=== PATIENT | male | born 1985 | race Caucasian/White ===

== ENCOUNTER 2017-10-28 23:48 | Emergency (ER) | payer BC ==
[2017-10-29 00:13] VITALS: BMI 26.4
[2017-10-29 00:16] VITALS: BP 132/76; PULSE 90; RESP 16; TEMP 98.4; O2SAT 99
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
--- NOTE | 2017-10-29 02:51 | RAD ---
EXAM: XR Left Wrist Complete, 3 or More Views CLINICAL HISTORY: 32 years old, male; Pain; Wrist; Left; Additional info: Foosh, lateral wrist tenderness TECHNIQUE: Frontal, lateral and oblique views of the left wrist. COMPARISON: CR - HAND LEFT 3 VIEWS ROUTINE 2017-10-29 01:24 FINDINGS: Bones/joints: 2 mm calcification in the dorsal aspect of the wrist raising suspicion for triquetral fracture. No dislocation. Soft tissues: Soft tissue swelling in the dorsal aspect of the wrist. No radiopaque foreign body. IMPRESSION: Soft tissue swelling. Findings suspicious for triquetral fracture.
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
== END 2017-10-29 03:16 | disposition home or self-care (01) ==
LOC: H.ER 23:48
DX: S62.112A Displaced fracture of triquetrum [cuneiform] bone, left wrist, initial encounter for closed fracture (principal); W19.XXXA Unspecified fall, initial encounter; Y92.89 Other specified places as the place of occurrence of the external cause; E11.9 Type 2 diabetes mellitus without complications; Z79.1 Long term (current) use of non-steroidal anti-inflammatories (NSAID); Z79.4 Long term (current) use of insulin